=== PATIENT | male | born 1955 | race Caucasian/White ===

== ENCOUNTER 2016-10-27 09:41 | Emergency (ER) | payer OTHER ==
[2016-10-27 09:59] VITALS: BP 145/90; PULSE 58; RESP 16; TEMP 97.3; O2SAT 98
--- NOTE | 2016-10-27 11:37 | UCPHY ---
H & P Patient Type: Established Chief Complaint Nursing Narrative: Low back pain starting yesterday after bending over at home; radiates around abdomin Time Seen by Provider: 10/27/16 11:10 HPI/ROS: HPI: 61-year-old male presents to urgent care with chief concern low back pain. It onset suddenly yesterday when he bend over to picker / packer dog poop. Reports 8/10 mid low back discomfort that radiates around into his left lower abdomen and groin creating a tingling sensation that is associated with nausea. Also reports my Pee does not feel quite right however denies dysuria, discomfort, burning, tingling, hematuria. Has taken Aleve with minimal improvement. Had mild radiation of pain into the left buttock yesterday but that has resolved. Reports a history of chronic low back pain for at least 10 years. Denies fever, chills, shortness of breath, chest pain, abdominal pain, vomiting, diarrhea, rash. No recent history of unexplained weight loss. ROS:10 point review of systems is negative other than as stated in HPI Source: Patient - Personal History Current Tetanus/Diphtheria Vaccine: Yes - Medical/Surgical History Hx Asthma: No Hx Chronic Respiratory Disease: No Hx Diabetes: No Hx Cardiac Disease: No Hx Renal Disease: No Hx Cirrhosis: No Hx Alcoholism: No Hx HIV/AIDS: No Hx Splenectomy or Spleen Trauma: No Other PMH: Stent. Cholesterol. Chronic low back pain - Family History Significant Family History: No pertinent family hx - Social History Smoking Status: Never smoked Alcohol Use: None Drug Use: None Additional Social History: Living at [facility] - Physical Exam Exam: Vital signs stable, reviewed by me Constitutional: Alert, calm, cooperative. No acute distress. HEENT: Head normocephalic. PERRLA, EOMI. No pallor or injection. TMs pearly- edmondson without bulging or retraction. Nasal mucosa pink and moist. Pharynx without redness or evidence of tonsillar exudates. Neck: Supple, nontender. Negative Kernig or Brudzinski's. No meningismus Respiratory: Breathing unlabored. Lungs clear to auscultation bilaterally. No adventitious sounds Cardiovascular: Heart rate regular. S1-S2. No murmur. DP/PT pulses 2+ bilaterally. Gastrointestinal: Abdomen soft, nontender. Bowel sounds normoactive x4 quadrants. : No suprapubic tenderness or CVA tenderness. Neuro: Patellar and Achilles DTRs 2+ bilaterally. Strength 5+ in all extremities. No point tenderness to palpation of thoracic or lumbar spine. Left and right paraspinous muscles without tenderness to palpation. No evidence of radiculopathy on straight leg raise bilaterally. Sensation intact to soft and pinprick in all regions of both legs and feet bilaterally. Musculoskeletal: Range of motion inhibited to forward flexion. Constitutional: Initial Vital Signs Temperature (C) 36.3 C 10/27/16 09:57 Heart Rate 58 L 10/27/16 09:57 Respiratory Rate 16 10/27/16 09:57 Blood Pressure 145/90 H 10/27/16 09:57 O2 Sat (%) 98 10/27/16 09:57 O2 Delivery Mode Room Air Allergies/Adverse Reactions: No Known Allergies Allergy (Verified 10/27/16 09:55) Home Medications: Medication Instructions Recorded ASPIRIN 10/27/16 Carvedilol 10/27/16 Crestor 10/27/16 Hydrocodone/Acetaminophen [Maxatawny 1 - 2 tab PO Q6H PRN #14 tab 10/27/16 5/325 (*)] Medical Decision Making - Diagnostics Imaging: 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 There is a mild dextroscoliosis. There are 5 lumbarized vertebral bodies. Mineralization is normal.. There is moderate narrowing of the L3-L4 and L5-S1 disk spaces.. There is mild narrowing of the L4-L5 disk space. There is overriding of the right L4-L5 facet joint. Other facet joints are normally aligned.. There is no evidence of spondylolisthesis. There are no compression abnormalities.. SI joints are normal. Impression: Scoliosis. Mild degenerative changes superimposed upon a congenitally small lumbar neural canal.. Dictated By: Nikunj Butler MD ED Course/Re-evaluation: 61-year-old male presents to urgent care with acute on chronic low back pain that onset suddenly yesterday when he bent over. Pain is associated with nausea and increased sensation with urination. Vitals are stable. He is afebrile. He has no midline spine tenderness. As this patient's pain is associated with increased sensation with urination, tingling of the lower abdomen" that he denies is discomfort and nausea, I have suggested that he will need a larger workup if his symptoms have not significantly improved. Today, I offered urinalysis, blood work, and possible CT. Patient refuses. I have counseled him that he will need to either follow up with his primary care provider or return here should symptoms worsen or not improve. I have recommended ultimately that if his symptoms are not significantly improved he would benefit from a CT abdomen and pelvis. He verbalizes understanding of this plan. Differential Diagnosis: Differential diagnosis includes but is not limited to musculoskeletal low back strain, compression fracture, disc herniation, cauda equina, intra-abdominal causes including UTI, kidney infection, appendicitis, bony Mets - Data Points Laboratory Results: 10/27/16 12:12 Urine Color YELLOW Urine Appearance CLEAR Urine pH 5.5 (5.0-7.5) Ur Specific [place] 1.020 (1.002-1.030) Urine Protein NEGATIVE (NEGATIVE) Urine Ketones NEGATIVE (NEGATIVE) Urine Blood NEGATIVE (NEGATIVE) Urine Nitrate NEGATIVE (NEGATIVE) Urine Bilirubin NEGATIVE (NEGATIVE) Urine Urobilinogen 0.2 EU (0.2-1.0) Ur Leukocyte Esterase NEGATIVE (NEGATIVE) Urine Glucose NEGATIVE (NEGATIVE) Departure - Departure Disposition: Home, Routine, Self-Care Clinical Impression: Acute exacerbation of chronic low back pain Condition: Good Instructions: Acute Low Back Pain (ED) Additional Instructions: Plan: Your x-ray does not appear to have any acute findings. Final radiology report is pending. You will be notified today if there further findings upon final radiology report. Okay to use Aleve twice daily with food, stay well hydrated while using, do not use for more than a week For more severe pain, may use 1-2 Maxatawny every 6 hours as needed--Never drink or drive while taking this medication. This medication impairs decision making capacity so do not work or sign important documents while taking. This medication its constipating so drink plenty of fluids and consider an over-the- counter stool softener such as docusate sodium (Colace) while taking this medication. This medication has addictive properties. You should use the least amount for the shortest amount of time. [facility] do not refill narcotic pain medication prescriptions. This is a hospital policy. You will need to follow up as indicated for recheck for further narcotic refills. As discussed, should your symptoms not improve or worsen, you will need further evaluation. Please make a follow-up appointment with your primary care provider as discussed for further evaluation--When you call to schedule appointment, please let the office know you are an "ER follow up" appointment" Referrals: Nilesh Mooney MD [Primary Care Provider] - As per Instructions Prescriptions: Hydrocodone/Acetaminophen [Maxatawny 5/325 (*)] 1 - 2 tab PO Q6H PRN #14 tab PRN Reason: Pain, Moderate - PQRS PQRS Measurement: 134: Depression screening and followup, PRIME MD-PHQ2 (12 years and older) Over the last 2 weeks, how often have you been bothered by any of the following problems? 1. Feeling down, depressed, or hopeless? 2. Little interest or pleasure in doing things? Patient answered no to both 1 and 2 130: Documentation of medications. Reviewed all patient medications, doses, route and frequency. 226: Do you smoke? No 47: 65 and older: Advanced care planning. Patient declines 51: 18 years old and older with diagnosis of COPD, spirometry performance. Patient has no history of COPD 52: 18 years old and older with COPD and symptoms of COPD or FEV1<60% no history of COPD
--- NOTE | 2016-10-27 12:22 | DX ---
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 There is a mild dextroscoliosis. There a re 5 lumbarized vertebral bodies. Mineralization is normal.. There is moderate narrowing of the L3-L4 and L5-S1 disk spaces.. There is mild narrowing of the L4-L5 disk space. There is overriding of the right L4-L5 facet joint. Other facet joints are normally aligned.. There is no evidence of spondyloli sthesis. There are no compression abnormalities.. SI joints are normal. Impression: Scoliosis. Mild degenerative changes superimposed upon a congenitally small lumbar neural canal..
[2016-10-27 12:35] LABS: COLOR YELLOW; LEUKOCYTE ESTERASE,URINE NEGATIVE (NEGATIVE); NITRITE,URINE NEGATIVE (NEGATIVE); PH,URINE 5.5 (5.0-7.5)
== END 2016-10-27 12:10 | disposition home or self-care (01) ==
LOC: CED 09:41
DX: M54.5 Low back pain (principal)
CPT/HCPCS: 72100-PO; 81003-PO; G0463-PO

== ENCOUNTER → 2016-11-12 | Outpatient (CLI) | payer OTHER ==
--- NOTE | 2016-11-12 13:19 | MR ---
MRI Lumbar Spine, Without Contrast History: Back pain. Radiculopathy. ICD 10 code M54.16. Technique: MRI was performed of the cervical spine using a 1.5 Michelle MRI system. Sagittal and axial imaging was obtained with standard imaging sequences. Findings: No significant bone marrow abnormality. No evidence for compression fracture. Disk desiccat ion multiple levels. Disk height narrowing L3-L4 through L5-S1. Conus is visualized at L1 and is unre markable. No significant spondylolisthesis. L1-L2 level unremarkable. L2-L3 level unremarkable. L3-L4 level demonstrates a mild broad basilar bulge. This asymmetric laterally to the left. Mild face t and ligamentum flavum hypertrophy is seen bilaterally. Mild spinal canal and mild bilateral lateral recess narrowing. Mild bilateral neural foraminal narrowing. L4-L5 level demonstrates a mild broad-based annular bulge and small central protrusion. Mild facet ar thropathy is seen bilaterally. This causing mild to moderate central spinal canal and minimal bilater al neural foraminal narrowing. L5-S1 level demonstrates a tiny central protrusion and annular tear causing no significant encroachme nt. 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
== END ==
LOC: FIMAGING 10:17
PROVIDERS: ATTEND Internal Medicine
DX: M54.16 Radiculopathy, lumbar region (principal); M51.36 Other intervertebral disc degeneration, lumbar region; M51.37 Other intervertebral disc degeneration, lumbosacral region